=== PATIENT | female | born 1955 | race Two or more races ===

== ENCOUNTER 2017-11-25 06:21 | Day surgery (SDC) | payer OTHER ==
[2017-11-25] MEDS ORDERED: LIDOCAINE 2% (SDV) 5 ML INJ (07:48)
[2017-11-25] MEDS ORDERED: PROPOFOL 40 ML (07:48)
== END 2017-11-25 09:58 | disposition home or self-care (01) ==
LOC: GIL 06:21
DX: Z12.11 Encounter for screening for malignant neoplasm of colon (principal); D12.5 Benign neoplasm of sigmoid colon; I10 Essential (primary) hypertension; E11.9 Type 2 diabetes mellitus without complications
CPT/HCPCS: 45380; 82962; 88305